=== PATIENT | female | born 1970 | race Caucasian/White ===

== ENCOUNTER → 2016-06-02 | Day surgery (SDC) | payer BC | END | disposition home or self-care (01) | LOC: SDC 08:16 → LAB 08:16 → SDC 09:00 | DX: N20.0 Calculus of kidney (principal); Z88.0 Allergy status to penicillin; Z79.899 Other long term (current) drug therapy; Z90.710 Acquired absence of both cervix and uterus; Z98.890 Other specified postprocedural states | CPT/HCPCS: C1758; C2617; J2370; J2704; J2765; Q9967 ==